=== PATIENT | female | born 1985 | race Caucasian/White ===

== ENCOUNTER → 2020-05-25 16:49 | Outpatient (CLI) | payer SELFPAY ==
[2020-05-26 16:43] LABS: Rubella Antibody IgG > 350.0 IU/mL (>15)
== END ==
PROVIDERS: PCP Obstetrics & Gynecology; Referring Provider Obstetrics & Gynecology; Visit Provider Obstetrics & Gynecology
DX: Z31.69 Encounter for other general counseling and advice on procreation (principal)
CPT/HCPCS: 36415; 86762; 86765

== ENCOUNTER → 2020-07-18 12:09 | Outpatient (CLI) | payer SELFPAY ==
--- NOTE | 2020-07-18 | DI.US.S_ITS ---
PROCEDURE: US OB <= 14 WEEKS FETUS INDICATIONS: SIZE AND DATES OUTSIDE/PRIOR DATING DATA: Last menstrual period (LMP): 05/04/2020. LMP-based estimated date of delivery (LUCIANA): 02/08/2021. First dating scan (date and location): 07/18/2020. Estimated date of delivery (LUCIANA) from first dating scan: 02/04/2021. TECHNIQUE: Real-time scanning was performed of the fetus and maternal pelvic organs, with image documentation. Endovaginal scanning was also performed to better visualize the fetus and maternal ovaries. COMPARISON: None. FINDINGS: Embryo: Dorothy-rump length measuring 4.5 cm, corresponding to gestational age 11 weeks 2 days. heart rate 168 BPM. Normal yolk sac. No omar gestational hemorrhage. Measurement variability in dating: +/- 4 weeks by LMP, +/- 7 days by mean sac diameter (use before 6 weeks gestation if crown-rump length not able to be measured), +/- 5 days by crown-rump length (up to 8 weeks 6 days gestation), +/- 7 days by crown-rump length (up to 13 weeks 6 days gestation). Maternal organs: Ovaries are within normal limits. Right corpus luteum. IMPRESSION: 1. Arana living intrauterine at 11 weeks 2 days based on today's crown rump length. heart rate 168 BPM. 2. No perigestational hemorrhage. Dictated by: Mahendra Oliveros M.D. on 07/18/2020 at 14:26 Approved by: Mahendra Oliveros M.D. on 07/18/2020 at 14:30
== END ==
PROVIDERS: PCP Registered Nurse Women's Health Care, Ambulatory; Referring Provider Registered Nurse Women's Health Care, Ambulatory; Visit Provider Registered Nurse Women's Health Care, Ambulatory
DX: Z36.87 Encounter for antenatal screening for uncertain dates (principal); Z3A.11 11 weeks gestation of pregnancy
CPT/HCPCS: 76801

== ENCOUNTER → 2022-05-09 09:29 | Outpatient (CLI) | payer OTHER, MEDICAID, SELFPAY ==
[2022-05-09 20:15] LABS: Vitamin D 25 Hydroxy (D3) 52.1 ng/mL (30.0-100.0)
== END ==
PROVIDERS: PCP Family Medicine; Visit Provider Family Medicine
DX: Z13.21 Encounter for screening for nutritional disorder (principal)
CPT/HCPCS: 82306

== ENCOUNTER → 2023-11-29 09:15 | Outpatient (CLI) | payer OTHER, MEDICAID, SELFPAY ==
[2023-11-29 19:17] LABS: Progesterone, Total 8.74 ng/mL
[2023-11-29 20:11] LABS: Vitamin D 25 Hydroxy (D3) 43.5 ng/mL (30.0-100.0)
== END ==
PROVIDERS: PCP Family Medicine
DX: N96 Recurrent pregnancy loss (principal); R79.89 Other specified abnormal findings of blood chemistry
CPT/HCPCS: 82306; 84144

== ENCOUNTER → 2024-06-16 15:34 | Outpatient (CLI) | payer OTHER, MEDICAID, SELFPAY ==
[2024-06-16 21:41] LABS: Urine N gonorrhoeae NOT DETECTED
[2024-06-16 21:46] LABS: Urine Chlamydia NOT DETECTED
== END ==
PROVIDERS: PCP Family Medicine; Visit Provider Obstetrics & Gynecology
DX: Z34.81 Encounter for supervision of other normal pregnancy, first trimester (principal); Z3A.10 10 weeks gestation of pregnancy
CPT/HCPCS: 87491; 87591

== ENCOUNTER → 2024-06-16 16:04 | Outpatient (CLI) | payer OTHER, MEDICAID, SELFPAY ==
[2024-06-16 17:05] LABS: Add Manual Diff / Slide Review NO; Basophils Absolute Auto 0 /uL (0-100); Basophils Percent Auto 0.3 % (0-2); Eosinophils Absolute Auto 200 /uL (0-450); Eosinophils Percent Auto 2.1 % (2-4); Hematocrit 35.8 % (36-46); Hemoglobin 12.2 g/dL (12.0-16.0); Lymphocytes Absolute Auto 2600 /uL (1100-4500); Lymphocytes Percent Auto 25.3 % (25-40); Mean Corpuscular Hemoglobin 32.1 PG (26-34); Mean Corpuscular Volume 94.4 fL (80-100); Monocytes Absolute Auto 900 /uL (0-900); Neutrophils Absolute Auto 6400 /uL (1500-7000); Neutrophils Percent Auto 63.3 % (50-75); Platelet Count 409 X10^3/uL (150-400); Red Blood Cell Count 3.79 X10^6/uL (4.0-5.2); White Blood Cell Count 10.1 X10^3/uL (4.5-11.0)
[2024-06-16 17:17] LABS: Hemoglobin A1C% w Est Avg Glu 5.2 % (4.0-6.0)
[2024-06-16 18:10] LABS: Thyroid Stimulating Hormone 0.393 uIU/mL (0.47-4.68)
== END ==
PROVIDERS: PCP Family Medicine; Referring Provider Obstetrics & Gynecology; Visit Provider Obstetrics & Gynecology
DX: Z34.81 Encounter for supervision of other normal pregnancy, first trimester (principal); Z3A.10 10 weeks gestation of pregnancy
CPT/HCPCS: 80055; 83036; 84439; 84443; 86787; 86803; 86850; 86900; 86901; 87389; 87491; 87591

== ENCOUNTER → 2024-09-03 11:26 | Outpatient (CLI) | payer OTHER, SELFPAY ==
--- NOTE | 2024-09-03 11:27 | DI.US.S_ITS ---
PROCEDURE: US OB >= 14 WEEKS FETUS INDICATIONS: ANATOMY OUTSIDE/PRIOR DATING DATA: Last menstrual period (LMP): 04/06/2024 LMP-based estimated date of delivery (LUCIANA): 01/21/2025 First dating scan (date and location): na Estimated date of delivery (LUCIANA) from first dating scan: na TECHNIQUE: Real-time scanning was performed of the fetus, with image documentation and biometric measurements. COMPARISON: None. FINDINGS: General: A single living intrauterine gestation is present. Presentation: Transverse and head to the right Placenta: Posterior no evidence of previa. Amniotic fluid index: 20.5 cm largest pocket is 6.2 cm heart rate: 157 Maternal cervical canal: 5.27 cm normal in appearance biometrics: Biparietal diameter: 5.2 cm, 21 weeks 6 days Head circumference: 19.7 cm, 21 weeks and 6 days Abdominal circumference: 17.3 cm, 22 weeks and 2 days Femur length: 3.6 cm, 21 weeks and 2 days Clinically estimated gestational age: 21 weeks and 3 days Composite gestational age from present scan: 21 weeks and 6 days Estimated weight and percentile: 454 grams 66 percentile Anatomic survey: Neuro: Ventricles are non-dilated at less than 10 mm. Cisterna magna is normal at 3-11 mm. Cerebellum is normal in size and morphology. Nuchal skin fold: Normal at less than 6 mm between 14-21 weeks gestational age. Face: Nose and lips, facial profile are normal. Spine: No evidence for spina bifida. Heart: 4-chambered heart is present, with normal ventricular outflow tracts. Diaphragm: Diaphragm is intact. Stomach: Left-sided stomach is present. Kidneys: No hydronephrosis. Normal is less than 5 mm in 2nd trimester, less than 7 mm in 3rd trimester. Cord: 3-vessel cord has orthotopic insertion. Bladder: Normal in size. Extremities: All 4 extremities identified. IMPRESSION: 1. Single live intrauterine consistent with 21 weeks and 6 days. 2. Normal anatomic survey. We strive to produce accurate, complete, and clear reports of imaging services. To assist us in improving patient care, this report was composed using standard report templates and voice recognition software. Therefore, it may contain abnormal punctuation, insertions and/or omissions. Occasional wrong-word or sound-alike substitutions may occur. Though we review the report and make efforts to correct it, we do recommend that the report be read carefully in proper context to recognize any text inaccuracies. Approved by: Arun Gibbons M.D. on 09/18/2024 at 12:45
== END ==
PROVIDERS: PCP Family Medicine; Referring Provider Obstetrics & Gynecology; Visit Provider Obstetrics & Gynecology
DX: Z34.82 Encounter for supervision of other normal pregnancy, second trimester (principal); Z3A.21 21 weeks gestation of pregnancy
CPT/HCPCS: 76811

== ENCOUNTER → 2024-10-20 14:53 | Outpatient (CLI) | payer OTHER, SELFPAY ==
[2024-10-20 16:23] LABS: Hematocrit 29.8 % (36-46); Hemoglobin 10.1 g/dL (12.0-16.0)
[2024-10-20 16:45] LABS: GTT (PREG) 1 Hour PP 50gm Dose 171 mg/dL (76-139)
== END ==
PROVIDERS: PCP Family Medicine; Referring Provider Obstetrics & Gynecology; Visit Provider Obstetrics & Gynecology
DX: Z34.82 Encounter for supervision of other normal pregnancy, second trimester (principal); Z3A.26 26 weeks gestation of pregnancy
CPT/HCPCS: 36415; 82950; 85014; 85018

== ENCOUNTER → 2024-11-16 09:43 | Outpatient (CLI) | payer OTHER, SELFPAY ==
[2024-11-16 11:22] LABS: Glucose Fasting Gestational 86 mg/dL (76-95)
[2024-11-16 12:17] LABS: Glucose 1 Hour Gest 140 mg/dL (76-180)
[2024-11-16 13:14] LABS: Glucose 2 Hour Gest 166 mg/dL (76-155)
[2024-11-16 13:25] LABS: Glucose Tol Interp,Gestational INTERPRETATION
[2024-11-16 13:53] LABS: Glucose 3 Hour Gest 156 mg/dL (76-140)
== END ==
LOC: LAB 09:45
PROVIDERS: PCP Family Medicine; Referring Provider Obstetrics & Gynecology; Visit Provider Obstetrics & Gynecology
DX: Z34.80 Encounter for supervision of other normal pregnancy, unspecified trimester (principal); R73.09 Other abnormal glucose
CPT/HCPCS: 36415; 82951; 82952

== ENCOUNTER → 2024-12-15 11:00 | Oncology outpatient (ONC) | payer OTHER, SELFPAY ==
[2024-12-03 10:44] VITALS: BP 117/62; PULSE 90; RESP 18; TEMP 37.1; O2SAT 99
[2024-12-03] MEDS: IRON SUCROSE 200 MG in SODIUM CHLORIDE 0.9% 100 ML 150 MG IV (11:07)
[2024-12-03 12:02] VITALS: BP 119/74; PULSE 90; RESP 18; TEMP 36.6; O2SAT 98
[2024-12-08 13:50] VITALS: BP 106/72; PULSE 102; RESP 18; TEMP 36.9; O2SAT 97
[2024-12-08] MEDS: IRON SUCROSE 200 MG in SODIUM CHLORIDE 0.9% 100 ML 220 MG IV (13:57)
[2024-12-08 14:54] VITALS: BP 114/74; PULSE 105; RESP 18; TEMP 37.1; O2SAT 97
[2024-12-15 10:48] VITALS: BP 107/69; PULSE 91; RESP 18; TEMP 36.6; O2SAT 100
[2024-12-15] MEDS: IRON SUCROSE 200 MG in SODIUM CHLORIDE 0.9% 100 ML 220 MG IV (11:15)
[2024-12-15 12:23] VITALS: BP 106/64; PULSE 99; RESP 18; TEMP 37.2; O2SAT 96
== END ==
PROVIDERS: PCP Family Medicine; Referring Provider Obstetrics & Gynecology; Visit Provider Obstetrics & Gynecology
DX: O99.013 Anemia complicating pregnancy, third trimester (principal); Z3A.36 36 weeks gestation of pregnancy
CPT/HCPCS: 87653; 96365; J1756

== ENCOUNTER → 2024-12-15 13:39 | Outpatient (CLI) | payer OTHER, SELFPAY ==
[2024-12-16 17:09] LABS: Strep Grp B PCR NEG for Grp B Strep
== END ==
PROVIDERS: PCP Family Medicine; Visit Provider Obstetrics & Gynecology
DX: Z34.93 Encounter for supervision of normal pregnancy, unspecified, third trimester (principal); Z3A.36 36 weeks gestation of pregnancy
CPT/HCPCS: 87653

== ENCOUNTER 2024-12-22 11:38 | Outpatient (CLI) | payer OTHER, SELFPAY ==
[2024-12-22 13:37] LABS: Add Manual Diff / Slide Review NO; Basophils Absolute Auto 0 /uL (0-100); Basophils Percent Auto 0.4 % (0-2); Eosinophils Absolute Auto 200 /uL (0-450); Eosinophils Percent Auto 2.2 % (2-4); Hematocrit 34.9 % (36-46); Hemoglobin 11.9 g/dL (12.0-16.0); Lymphocytes Absolute Auto 1900 /uL (1100-4500); Lymphocytes Percent Auto 22.1 % (25-40); Mean Corpuscular Hemoglobin 32.7 PG (26-34); Mean Corpuscular Volume 96.2 fL (80-100); Monocytes Absolute Auto 800 /uL (0-900); Monocytes Percent Auto 9.4 % (3-14); Neutrophils Absolute Auto 5600 /uL (1500-7000); Neutrophils Percent Auto 65.9 % (50-75); Platelet Count 282 X10^3/uL (150-400); Red Blood Cell Count 3.63 X10^6/uL (4.0-5.2); Red Cell Distribution Width 15.9 % (11.6-14.8); White Blood Cell Count 8.5 X10^3/uL (4.5-11.0)
[2024-12-22 13:45] LABS: Hemoglobin A1C% w Est Avg Glu 5.1 % (4.0-6.0)
[2024-12-22 13:49] LABS: Alanine Aminotransferase 29 IU/L (<35); Albumin Globulin Ratio 1.2 (1.0-2.8); Alkaline Phosphatase 145 U/L (38-126); Aspartate Aminotransferase 38 IU/L (14-36); BUN Creatinine Ratio 17.5 (6-22); Bilirubin Total 0.5 mg/dL (0.2-1.3); Blood Urea Nitrogen 10 mg/dL (7-17); Carbon Dioxide 20 mmol/L (22-32); Chloride 106 mmol/L (98-107); Estimated Glomerular Filt Rate > 60 mL/min (>60); Globulin 3.3 g/dL (1.7-4.1); Glucose 87 mg/dL (70-100); HEMOLYSIS < 15 (0-50); Potassium 4.3 mmol/L (3.4-5.1); Sodium 134 mmol/L (137-145); Total Protein 7.3 g/dL (6.3-8.2); Uric Acid 5.2 mg/dL (2.5-6.2)
[2024-12-22 14:04] LABS: Creatinine Urine Random 94.69 mg/dL; Protein (Total) Urine Random 20 mg/dL (0-12); Protein Creatinine Ratio Urine 0.21 GRAM/24H
== END 2024-12-22 13:45 | disposition home or self-care (01) ==
LOC: LABOR 12:23 → OB 14:13
PROVIDERS: PCP Family Medicine; Referring Provider Obstetrics & Gynecology; Visit Provider Obstetrics & Gynecology
DX: O09.523 Supervision of elderly multigravida, third trimester (principal); Z3A.37 37 weeks gestation of pregnancy
CPT/HCPCS: 36415; 59025; 80053; 83036; 84550; 85025; G0378; G0379

== ENCOUNTER 2024-12-29 10:46 | Outpatient (CLI) | payer OTHER, SELFPAY | END 2024-12-29 11:33 | disposition home or self-care (01) | LOC: LABOR 11:21 → OB 12:42 | PROVIDERS: PCP Family Medicine; Referring Provider Obstetrics & Gynecology; Visit Provider Obstetrics & Gynecology | DX: O09.523 Supervision of elderly multigravida, third trimester (principal); O24.419 Gestational diabetes mellitus in pregnancy, unspecified control; O13.3 Gestational [pregnancy-induced] hypertension without significant proteinuria, third trimester; Z3A.38 38 weeks gestation of pregnancy | CPT/HCPCS: 59025; G0378; G0379 ==

== ENCOUNTER 2024-12-29 19:22 | Inpatient (IN) | payer OTHER, SELFPAY ==
[2024-12-29 20:02] VITALS: BP 134/76
[2024-12-29 20:26] LABS: Add Manual Diff / Slide Review NO; Basophils Absolute Auto 0 /uL (0-100); Basophils Percent Auto 0.4 % (0-2); Eosinophils Absolute Auto 200 /uL (0-450); Eosinophils Percent Auto 1.4 % (2-4); Hematocrit 34.3 % (36-46); Hemoglobin 12.1 g/dL (12.0-16.0); Lymphocytes Absolute Auto 2100 /uL (1100-4500); Mean Corpuscular HGB Conc 35.3 % (30-36); Mean Corpuscular Hemoglobin 33.7 PG (26-34); Mean Corpuscular Volume 95.4 fL (80-100); Monocytes Absolute Auto 1000 /uL (0-900); Monocytes Percent Auto 8.9 % (3-14); Neutrophils Absolute Auto 7600 /uL (1500-7000); Neutrophils Percent Auto 70.3 % (50-75); Platelet Count 262 X10^3/uL (150-400); Red Blood Cell Count 3.59 X10^6/uL (4.0-5.2); Red Cell Distribution Width 15.5 % (11.6-14.8); White Blood Cell Count 10.9 X10^3/uL (4.5-11.0)
[2024-12-29 20:37] LABS: Alanine Aminotransferase 26 IU/L (<35); Albumin 3.8 g/dL (3.5-5.0); Albumin Globulin Ratio 1.1 (1.0-2.8); Alkaline Phosphatase 177 U/L (38-126); Aspartate Aminotransferase 42 IU/L (14-36); BUN Creatinine Ratio 26.4 (6-22); Bilirubin Total 0.5 mg/dL (0.2-1.3); Blood Urea Nitrogen 14 mg/dL (7-17); Calcium 8.9 mg/dL (8.4-10.2); Carbon Dioxide 17 mmol/L (22-32); Chloride 107 mmol/L (98-107); Estimated Glomerular Filt Rate > 60 mL/min (>60); Globulin 3.4 g/dL (1.7-4.1); Glucose 85 mg/dL (70-99); HEMOLYSIS 17 (0-50); Potassium 3.8 mmol/L (3.4-5.1); Sodium 134 mmol/L (137-145); Total Protein 7.2 g/dL (6.3-8.2); Uric Acid 5.4 mg/dL (2.5-6.2)
[2024-12-29] MEDS: DINOPROSTONE VAG (CERVIDIL) 10 MG VAG (21:19)
[2024-12-29 21:56] LABS: Creatinine Urine Random 34.44 mg/dL; Protein (Total) Urine Random 16 mg/dL (0-12); Protein Creatinine Ratio Urine 0.46 GRAM/24H
[2024-12-30 08:22] LABS: Add Manual Diff / Slide Review NO; Basophils Absolute Auto 100 /uL (0-100); Basophils Percent Auto 0.7 % (0-2); Eosinophils Absolute Auto 100 /uL (0-450); Eosinophils Percent Auto 1.1 % (2-4); Hematocrit 33.3 % (36-46); Hemoglobin 11.4 g/dL (12.0-16.0); Lymphocytes Absolute Auto 1600 /uL (1100-4500); Lymphocytes Percent Auto 15.8 % (25-40); Mean Corpuscular HGB Conc 34.2 % (30-36); Mean Corpuscular Hemoglobin 32.9 PG (26-34); Mean Corpuscular Volume 96.4 fL (80-100); Monocytes Absolute Auto 800 /uL (0-900); Monocytes Percent Auto 7.5 % (3-14); Neutrophils Absolute Auto 7700 /uL (1500-7000); Neutrophils Percent Auto 74.9 % (50-75); Platelet Count 258 X10^3/uL (150-400); Red Blood Cell Count 3.45 X10^6/uL (4.0-5.2); Red Cell Distribution Width 15.9 % (11.6-14.8); White Blood Cell Count 10.2 X10^3/uL (4.5-11.0)
[2024-12-30 08:25] LABS: Alanine Aminotransferase 27 IU/L (<35); Albumin 3.8 g/dL (3.5-5.0); Albumin Globulin Ratio 1.2 (1.0-2.8); Alkaline Phosphatase 155 U/L (38-126); Aspartate Aminotransferase 45 IU/L (14-36); BUN Creatinine Ratio 20.8 (6-22); Bilirubin Total 0.6 mg/dL (0.2-1.3); Blood Urea Nitrogen 11 mg/dL (7-17); Calcium 9.4 mg/dL (8.4-10.2); Carbon Dioxide 17 mmol/L (22-32); Chloride 106 mmol/L (98-107); Estimated Glomerular Filt Rate > 60 mL/min (>60); Globulin 3.3 g/dL (1.7-4.1); Glucose 107 mg/dL (70-99); HEMOLYSIS 43 (0-50); Potassium 3.8 mmol/L (3.4-5.1); Sodium 133 mmol/L (137-145); Total Protein 7.1 g/dL (6.3-8.2)
[2024-12-30 08:27] LABS: Uric Acid 6.1 mg/dL (2.5-6.2)
--- NOTE | 2024-12-30 09:14 | PM.OBHP.IH.1 ---
OB HPI Date/Time Date of admission: 12/29/24 Date Patient Seen: 12/30/24 Time Patient Seen: 07:15 History of Present Condition Chief complaint: Induction LUCIANA Calculator Estimated Delivery Date Method Current WG Current Estimate 01/11/25 LMP (Certain) 38w 2d Other Estimates 01/07/25 Ultrasound #1 38w 6d Estimated Gestational Age (weeks): 38w2d : 4 Para: 1 Narrative: 39yo at 38w2d D=10wk US admitted overnight for cervical ripening, planned IOL at term in setting of gestational HTN, AMA, A1GDM. Patient was admitted to facility evening of 12/29 following office encounter earlier in the day. Cervidil placed per RN at 2115, CEFM overnight with regular contractions pt states are mild to moderate, q5-7min. Pt reports this AM significant FM in the last half hour with perceived change in presentation. care: good care Dating criteria OB: LMP confirmed by 1st trimester US Ultrasounds: normal mid trimester US Obstetrical complications: gestational diabetes (A1GDM, late diagnosis ) and gestational hypertension (non-sustained mild range BP, Pr/Cr 0.46, AST 42) External History Prior Pregnancies: G1 - , c/b retained placenta with PPH G2/3 - SAB G4 - current Indications Indication for induction OB: gestational HTN/pre-eclampsia Preadmission Labs Last OB Lab Results: Blood Type A Positive 12/29/24 20:05 Antibody Screen Negative 12/29/24 20:05 Hct 33.3 % (36-46) L 12/30/24 07:55 Hgb 11.4 g/dL (12.0-16.0) L 12/30/24 07:55 Hep Bs Antigen Negative s/c (NEGATIVE) 06/16/24 16:34 Hepatitis C Antibody Negative s/c (NEGATIVE) 06/16/24 16:34 Rubella Antibody > 350.0 IU/mL (>15) 06/16/24 16:34 VZV IgG Antibody Reactive (Non Reactive) 06/16/24 16:34 Glucose 1 Hr 50 gm 171 mg/dL (76-139) H 10/20/24 16:04 Hemoglobin A1c 5.1 % (4.0-6.0) 12/22/24 13:20 Group B Strep (PCR) Neg for grp b strep 12/15/24 13:39 Glucose Tolerance Testing: Fasting (86), 1 hr (140), 2 hr (166) and 3 hr (156) -: Chlamydia screen: negative, Gonorrhea screen: negative and Urine: negative Genetic Screens: Cell-free DNA: Normal and Alpha-fetoprotein: Normal External Labs -: Urine: negative Prior (ies) Past Pregnancies Del. Date GA/Weeks Labor Lgth Wt Sex Route Outcome Anesthesia Place Delv Breastfeed Preg Comp Name 02/05/21 40 50 8 lb 4 oz Female vaginal live - full term none PH [place] 3+ years other hemorrhage Leah 12/08/21 ~8 spontaneous 09/10/23 ~8 spontaneous Delivery Date: 02/05/21 Last Updated by: Nia Cortez RN retained placenta Delivery Date: 12/08/21 Last Updated by: Nia Cortez RN Missed AB, likely stopped developing ~4 wk; passed spontaneously w/o complications Delivery Date: 09/10/23 Last Updated by: Nia Cortez RN missed AB ~5 weeks, hemorrhaged w/ spontaneous passage ~8 weeks Evaluation Evaluation Baseline heart rate: 145 Variability: Moderate (11-25) monitor accelerations: Absent Monitor Decelerations: Absent Contraction Frequency (minutes): 7 Uterine Contraction Intensity: Moderate Category of Tracing: Reactive Status: Category l Dilation (cm): 1 Effacement (%): 0 Dilation: 1-2 cm Effacement: 0-30% station: -4 (unable to palpate vertex ) Consistency: soft Comments: unable to palpate vertex on SVE bedside transabdominal US performed --> malpresentation, transverse lie (head to maternal L, back down/LE in maternal RLQ) [facility] Medical History (Updated 12/22/24 @ 12:13 by Pilar Tesfaye MD) Gestational diabetes mellitus (GDM) hemorrhage Retained placenta Chicken pox (~1989) Surgical History (Updated 06/01/24 @ 14:46 by Nia Cortez RN) H/O oral surgery [place] teeth extracted Family History (Updated 06/01/24 @ 14:48 by Nia Cortez RN) Father Lung cancer Smoker Mother Diabetes mellitus Hypertension Social History marital status: unmarried,living together number of children: 1 household members: significant other and children lives independently: Yes caregiver/support person: Yes housing: house pets and animals: Yes (dog and cat) education level: high school (GED) 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[employer], 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) current occupational exposures/hazards: Yes (aware of precautions) special holger needs: No travel history: over 6 months ago seatbelt use: always water heater temp set < 120 deg: Yes working smoke detector in home: Yes fire extinguisher in home: Yes carbon monox detector in home: Yes firearms in home: No do you feel safe at home: Yes Smoking Status: Former smoker second hand exposure: No alcohol intake: never substance use type: does not use during the past year weight has: remained stable well-balanced diet: daily or most days daily servings fruits/ve-4 caffeine: Yes (occasional cup coffee) Type(s) of exercise: walking and other (active w/ young child) Meds Home Medications and Allergies Home Medications Medication Instructions Recorded Confirmed Type ferrous sulfate 134 mg (27 mg 134 mg PO DAILY 06/01/24 12/02/24 History iron) tablet omega-3 fatty acids 1,000 mg 1,000 mg PO DAILY 06/01/24 12/02/24 History capsule vit 14-ferrous fum 29 mg 1 tab PO DAILY 06/01/24 12/02/24 History iron-folic acid 1 mg chewable tablet ferrous sulfate 325 mg (65 mg 325 mg PO BID #60 tabs 10/21/24 12/02/24 Rx iron) tablet,delayed release Allergies Allergy/AdvReac Type Severity Reaction Status Date / Time No Known Drug Allergies Allergy Verified 12/02/24 09:16 Review of Systems Review of Systems ROS: Yes All systems reviewed with the patient and are negative except as otherwise documented OB Exam Vital signs Blood Pressure: 137/72 Pulse Rate: 93 Respiratory Rate: 18 Temperature: 97.3 F HENMT Head: normal to inspection Resp Effort & Inspection: normal respiratory effort and able to speak in complete sentences Cardio Rate: regular rate Extremities Lower extremity: Yes normal to inspection GI Inspection: normal to inspection Palpation: Yes soft Other: gravid, eduardo transverse 7.5-8# Other: 1/thk/hi, unable to palpate vertex Objective Labs 12/30/24 07:55 12/30/24 07:55 Labs: Laboratory Results - last 24 hr 12/29/24 12/29/24 12/30/24 20:05 21:15 07:55 WBC 10.9 10.2 RBC 3.59 L 3.45 L Hgb 12.1 11.4 L Hct 34.3 L 33.3 L MCV 95.4 96.4 MCH 33.7 32.9 MCHC 35.3 34.2 RDW 15.5 H 15.9 H Plt Count 262 258 Neut % (Auto) 70.3 74.9 Lymph % (Auto) 19.0 L 15.8 L [place] % (Auto) 8.9 7.5 Eos % (Auto) 1.4 L 1.1 L Baso % (Auto) 0.4 0.7 Neut # (Auto) 7600 H 7700 H Lymph # (Auto) 2100 1600 [place] # (Auto) 1000 H 800 Eos # (Auto) 200 100 Baso # (Auto) 0 100 Sodium 134 L 133 L Potassium 3.8 3.8 Chloride 107 106 Carbon Dioxide 17 L 17 L BUN 14 11 Creatinine 0.53 0.53 Estimated GFR > 60 > 60 BUN/Creatinine Ratio 26.4 H 20.8 Glucose 85 107 H Uric Acid 5.4 6.1 Calcium 8.9 9.4 Total Bilirubin 0.5 0.6 AST 42 H 45 H ALT 26 27 Alkaline Phosphatase 177 H 155 H Total Protein 7.2 7.1 Albumin 3.8 3.8 Globulin 3.4 3.3 Albumin/Globulin Ratio 1.1 1.2 U Random Total Protein 16 H Urine Creatinine 34.44 Protein/Creatinin Ratio 0.46 Blood Type A Positive Antibody Screen Negative Assessment and Plan Assessment and Plan Assessment and Plan narrative: 39yo at 38w2d d=10wk US, admitted for overnight for IOL in setting of term gestational HTN, AMA, A1GDM now with change in presentation to transverse back-down lie IOL cervidil removed this AM, malpresentation identified at time of exam patient counseled on either attempt at ECV followed by continued IOL versus proceeding directly to primary for delivery. Risks, benefits and alternatives were discussed and in shared decision making model patient strongly desires to proceed with primary section OR notified NPO except for meds Gestational HTN, now with lab evidence of preE without severe features non-sustained intermittent mild range BP, asymptomatic mild isolated elevation in AST (45), ALT/Cr/Plt wnl, uric acid 6.1 cont serial BP monitoring, no indication for magensium gtt at this time proceed to delivery A1GDM POCT BG wnl dispo: to OR, anticipate routine postoperative/ care Time-Based Coding :: [TOTAL MINUTES] spent with patient and on the chart (including review of chart, obtaining history, exam, reviewing outside data, placing orders, documenting exam and treatment plan, and counseling patient) on [DATE].
[2024-12-30] MEDS: CITRIC ACID/SODIUM CITRATE 15 ML SOLUTION 30 ML PO (09:44)
--- NOTE | 2024-12-30 09:55 | PM.PREOP ---
Pre-operative Note Interval Note History & Physical reviewed/Exam performed by Physician: Yes Changes to H&P: No ASA Class (for procedural sedation): III
[2024-12-30] MEDS: CEFAZOLIN 2 GM/100 ML PREMIX 100 ML IV (10:13)
[2024-12-30] MEDS: ACETAMINOPHEN IV 1,000 MG/100 ML VIAL 400 MG IV (10:25)
--- NOTE | 2024-12-30 10:38 | SUR.OPER ---
Supine on padded OR bed, head on pillow, arms secured on padded arm boards at <90 degrees abduction, bump to right hip, legs uncrossed, safety belt at thigh.
[2024-12-30] MEDS: TRANEXAMIC ACID 1,000 MG in SODIUM CHLORIDE 0.9% 100 ML 600 MG IV (10:43)
[2024-12-30] MEDS: OXYTOCIN 10 UNIT/ML VIAL IM (10:58)
--- NOTE | 2024-12-30 11:38 | P.OP_ITS ---
Operative Date/Time/Diagnoses Date of procedure: 12/30/24 Time of procedure: 10:30 Pre-op diagnosis: 1) IUP at 38w2d; 2) malpresentation; 3) pre-eclampsia without severe features; 4) AMA Post-op diagnosis: other (s/p primary CS) Procedure & Clinicians Procedure: primary Same procedure as scheduled: Yes Indications: malpresentation Surgeon: Pilar Tesfaye Electronics Processing Supervisor: David Molina Reason for Electronics Processing Supervisor: acuity, high risk hemorrhage Anesthesia Type: Spinal Operative Notes Findings: Liveborn female in unstable cephalic presentation grossly normal uterus, bilateral adnexae Closure Type: primary Specimen(s): cord blood Intraoperative meds administered: Acetaminophen, Duramorph, Ketorolac, Pitocin (10u IU pit ) and Tranexamic acid (at time of placental delivery ) Estimated Blood Loss (mL): 500 Blood products transfused: none Procedure in detail: Pt was taken to the operating room and transferred to OR table.? The spinal was placed per anesthesia.? The patient was placed in the supine position, prepped and draped in a sterile fashion.? A mitchell catheter was inserted. Prior to incision the level of anesthesia was rechecked and found to be adequate.? A timeout was once again performed. A pfannensteil incision was made 2cm superior to the pubic symphysis.? This incision was carried down sharply to the level of the rectus fascia.? The fascia was incised sharply with knife and the incision was extended bilaterally and superiorly using monte scissors. The superior border of the fascia was elevated with two Tio clamps and bluntly dissected off of the rectus muscles followed by incision of the median raphe with the monte scissors.? Attention was then turned to the inferior border of the fascia which was dissected away from the underlying musculature in a similar manner down to the level of the pubic symphysis.? The rectus muscles were then in the midline and the peritoneum was identified.? The peritoneum was entered bluntly under direct visualization.? The peritoneal opening was then extended manually.? The coloring machine operator?s hand was inserted in the abdomen and the uterus was found to be in a levo-rotated position. The bladder blade was then inserted. The vesicouterine peritoneum was identified, elevated using DeBakey forceps and incised in the midline using Metzenbaum scissors.? The incision was carried laterally and superiorly bilaterally.? A bladder flap was further developed digitally and the bladder blade was replaced.? Next, a low transverse incision was made in the uterus using the knife.? The incision was extended laterally and superiorly bilaterally bluntly.? The coloring machine operator?s hand was then inserted into the uterus to find an in the vertex OT position.? The bladder blade was removed and ?s vertex was grasped, flexed and brought to the incision where the was delivered atraumatically using fundal pressure.? The cord was doubly clamped and cut after 60s of delayed cord clamping.? The was then passed to waiting pediatricians.? The placenta was noted to be densely adherent and necessitated manual extraction however no evidence of accreta; the placenta was then passed off the field. ? The uterus was exteriorized and the uterine cavity was wiped of all clots and debris.? The bladder blade was reinserted and the hysterotomy incision was repaired with #0 vicryl in a running locked fashion, followed by a second #0 vicryl in an imbricating fashion.? Tubes, ovaries and adnexae were visualized and noted to be grossly normal in appearance.? The uterus was replaced into the abdomen without difficulty and the hysterotomy was noted to be hemostatic off of tension.? Perclot was placed along the denuded lower uterine segment for further hemostasis prophylaxis. The rectus fascia was closed using #1 vicryl in a running fashion.? The incision was irrigated and hemostasis was achieved using the bovie.? The subcutaneous space was reapproximated using plain gut suture in a running fashion.? The skin was closed using 4-0 monocryl followed by application of steristrips and abdominal compression dressing.? All counts were correct x2.? The pt tolerated the procedure well and without difficulty. Fundal contents were expressed and fundus noted to be firm, level noted prior to patient transfer to PACU in stable condition.? Complications: none Baby 1: Delivery Date: 12/30/24 Delivery Time: 10:40 Infant Gender: Female Presentation: vertex (unstable lie/non-engaged ) Position: Left Occiput Transverse Placental Delivery Description: Manual Removal Cord Vessel Description: 3 Vessels score (1 min): 8 score (5 min): 9 weight: 8 lb 6 oz Post-operative Condition: stable Disposition: PACU Aftercare: routine postop
[2024-12-30 11:39] VITALS: BP 107/70; PULSE 103; RESP 10; O2SAT 98
[2024-12-30 13:25] VITALS: BP 137/72; PULSE 93; RESP 18; TEMP 36.3
[2024-12-30] MEDS: KETOROLAC 30 MG/ML VIAL IV ×2 (17:20→23:49)
[2024-12-30] MEDS: ACETAMINOPHEN 325 MG TABLET 650 MG PO (21:21)
[2024-12-31] MEDS: ACETAMINOPHEN 325 MG TABLET 650 MG PO ×4 (03:49→23:52)
[2024-12-31] MEDS: KETOROLAC 30 MG/ML VIAL IV (07:44)
[2024-12-31 07:47] LABS: Add Manual Diff / Slide Review NO; Basophils Absolute Auto 0 /uL (0-100); Basophils Percent Auto 0.3 % (0-2); Eosinophils Absolute Auto 0 /uL (0-450); Eosinophils Percent Auto 0.3 % (2-4); Hematocrit 35.2 % (36-46); Hemoglobin 11.7 g/dL (12.0-16.0); Lymphocytes Absolute Auto 1000 /uL (1100-4500); Mean Corpuscular HGB Conc 33.2 % (30-36); Mean Corpuscular Hemoglobin 32.3 PG (26-34); Mean Corpuscular Volume 97.1 fL (80-100); Monocytes Absolute Auto 600 /uL (0-900); Neutrophils Absolute Auto 12900 /uL (1500-7000); Neutrophils Percent Auto 88.4 % (50-75); Platelet Count 203 X10^3/uL (150-400); Red Blood Cell Count 3.63 X10^6/uL (4.0-5.2); Red Cell Distribution Width 15.7 % (11.6-14.8); White Blood Cell Count 14.6 X10^3/uL (4.5-11.0)
[2024-12-31 08:06] LABS: Alanine Aminotransferase 21 IU/L (<35); Albumin 3.1 g/dL (3.5-5.0); Albumin Globulin Ratio 1.1 (1.0-2.8); Alkaline Phosphatase 109 U/L (38-126); Aspartate Aminotransferase 34 IU/L (14-36); BUN Creatinine Ratio 14.5 (6-22); Bilirubin Total 0.8 mg/dL (0.2-1.3); Blood Urea Nitrogen 9 mg/dL (7-17); Calcium 9.2 mg/dL (8.4-10.2); Carbon Dioxide 19 mmol/L (22-32); Chloride 106 mmol/L (98-107); Estimated Glomerular Filt Rate > 60 mL/min (>60); Globulin 2.9 g/dL (1.7-4.1); Glucose 96 mg/dL (70-99); HEMOLYSIS < 15 (0-50); Potassium 4.1 mmol/L (3.4-5.1); Sodium 132 mmol/L (137-145)
--- NOTE | 2024-12-31 09:33 | PM.OBPN.1 ---
Subjective - OB Subjective Patient comments: no complaints, pain well controlled, incisional pain, tolerating diet and flatus present feeding status: exclusively breast feeding Narrative: Doing very well overnight. No N&V and she's already been OOD a couple of times without undue discomfort. Baseline pulse remains elevated but the trend appears to be toward normalization. She has no other concerns and her baby seems to be doing well. Date Patient Seen: 12/31/24 Time Patient Seen: 09:33 Exam Vital Signs (past 8 hours): Oxygen Delivery Method Room Air Const General: cooperative and comfortable Nutritional Appearance: average body habitus Orientation: alert and oriented x3 HENMT Head: normal to inspection, atraumatic and abrasion Ears: hearing grossly normal bilaterally Face and sinus: face symmetric Eyes General: appearance normal, both eyes and all related structures Conjunctivae: conjunctivae normal Sclera: sclerae normal EOM: EOM intact bilaterally Neck Neck: normal visual inspection Resp Effort & Inspection: normal respiratory effort and able to speak in complete sentences Auscultation: clear to auscultation bilaterally Cardio Rate: regular rate Rhythm: regular rhythm Heart Sounds: S1 normal, S2 normal and no murmurs GI Inspection: normal to inspection and incision (Surgical dressing clean and dry) Palpation: soft, no hepatosplenomegaly and tender (Mild, diffuse postsurgical tenderness) External Female Exam: other (Light lochia) Uterus Location (Fundal Height): 18 Extrem General: no calf tenderness Psych Appearance: grossly normal Mental Status: mental status grossly normal Speech and Movement: speech and movement normal Mood: congruent mood Affect: normal affect Attitude: cooperative Thought Process: normal Thought Content: normal Judgment: judgment good Objective Labs 12/31/24 07:38 12/31/24 07:38 Labs: Laboratory Results - last 24 hr 12/31/24 07:38 WBC 14.6 H RBC 3.63 L Hgb 11.7 L Hct 35.2 L MCV 97.1 MCH 32.3 MCHC 33.2 RDW 15.7 H Plt Count 203 Neut % (Auto) 88.4 H Lymph % (Auto) 7.0 L Power % (Auto) 4.0 Eos % (Auto) 0.3 L Baso % (Auto) 0.3 Neut # (Auto) 18559 H Lymph # (Auto) 1000 L Power # (Auto) 600 Eos # (Auto) 0 Baso # (Auto) 0 Sodium 132 L Potassium 4.1 Chloride 106 Carbon Dioxide 19 L BUN 9 Creatinine 0.62 Estimated GFR > 60 BUN/Creatinine Ratio 14.5 Glucose 96 Calcium 9.2 Total Bilirubin 0.8 AST 34 ALT 21 Alkaline Phosphatase 109 Total Protein 6.0 L Albumin 3.1 L Globulin 2.9 Albumin/Globulin Ratio 1.1 Assessment & Plan Plan day: 1 plan OB: routine postop care Comments: Anticipate D/C 01/01/2025. Time-Based Coding :: 15 minutes spent with patient and on the chart (including review of chart, obtaining history, exam, reviewing outside data, placing orders, documenting exam and treatment plan, and counseling patient) on 12/31/2024.
[2024-12-31] MEDS: PRENATAL VIT,CALC/IRON/FOLIC 1 TABLET 1 TAB PO (10:56)
[2024-12-31 12:29] VITALS: BP 137/72; PULSE 93; RESP 18; TEMP 36.3
[2024-12-31 15:35] VITALS: TEMP 36.7
[2024-12-31] MEDS: IBUPROFEN 600 MG TABLET PO ×2 (15:35→23:53)
[2025-01-01] MEDS: IBUPROFEN 600 MG TABLET PO ×3 (06:08→17:48)
[2025-01-01] MEDS: ACETAMINOPHEN 325 MG TABLET 650 MG PO ×3 (06:08→17:49)
--- NOTE | 2025-01-01 08:00 | P.PNOB_ITS ---
Subjective - OB Subjective Patient comments: incisional pain (improving), tolerating diet and flatus present [place] baby status: doing well and nursing well feeding status: exclusively breast feeding Narrative: POD2 s/p primary CS for unstable lie. Patient states this AM that she is feeling better, notes moderate difficulty with ambulation secondary to incisional discomfort, adequate analgesia with current PO regimen. Denies BERTRAND, vision changes, RUQ pain. exclusively. Notes fatigue without LH/dizziness, ambulating and voiding independently. Date Patient Seen: 01/01/25 Time Patient Seen: 07:30 Exam Vital Signs (past 8 hours): Oxygen Delivery Method Room Air bP 125/76 HR 70 RR 16 Tc 97.4 Const General: cooperative, comfortable and well developed Nutritional Appearance: average body habitus Orientation: alert, awake and oriented x3 Limitations: mental status not altered HENMT Head: normal to inspection Resp Effort & Inspection: normal respiratory effort and able to speak in complete sentences Cardio Pulses: normal peripheral pulses GI Inspection: normal to inspection Palpation: soft Other: abd compression dressing in place, c/d/i mild appropriate tenderness to palpation, fundus firm << umb Other: deferred Skin General: no rashes or lesions noted Neuro General: patient alert, patient awake and patient oriented x3 Extrem General: normal to inspection Psych Mental Status: mental status grossly normal Judgment: judgment good Objective Labs 12/31/24 07:38 12/31/24 07:38 Labs: Laboratory Results - last 24 hr 12/31/24 07:38 Sodium 132 L Potassium 4.1 Chloride 106 Carbon Dioxide 19 L BUN 9 Creatinine 0.62 Estimated GFR > 60 BUN/Creatinine Ratio 14.5 Glucose 96 Calcium 9.2 Total Bilirubin 0.8 AST 34 ALT 21 Alkaline Phosphatase 109 Total Protein 6.0 L Albumin 3.1 L Globulin 2.9 Albumin/Globulin Ratio 1.1 Assessment & Plan Plan day: 2 plan OB: routine postop care Comments: 39yo POD2 s/p 1LTCS for unstable lie, maternal GHTN vs preE without severe features, h/o PPH necessitating transfusion, maternal anemia of , A1GDM, AMA Postop/ routine care abd binder requested this AM anticipate dc to home in AM secondary to transportation burden (would [place] able [place] this evening), personal h/o PPH Time-Based Coding :: [TOTAL MINUTES] spent with patient and on the chart (including review of chart, obtaining history, exam, reviewing outside data, placing orders, documenting exam and treatment plan, and counseling patient) on [DATE].
[2025-01-01] MEDS: PRENATAL VIT,CALC/IRON/FOLIC 1 TABLET 1 TAB PO (09:45)
[2025-01-02] MEDS: IBUPROFEN 600 MG TABLET PO ×2 (02:42→08:47)
[2025-01-02] MEDS: ACETAMINOPHEN 325 MG TABLET 650 MG PO ×2 (02:43→08:48)
[2025-01-02] MEDS: LANOLIN OINT 7 GM 1 APPLIC TOP (08:47)
[2025-01-02] MEDS: PRENATAL VIT,CALC/IRON/FOLIC 1 TABLET 1 TAB PO (08:47)
--- NOTE | 2025-01-02 12:19 | P.DS_ITS ---
Discharge Providers Provider Date of admission: 12/29/24 19:22 Discharge Date: 01/02/25 Primary care physician: Jose Antonio Sanders MD Consults: 12/29/24 20:01 Consult to Anesthesiology Urgent Comment: Consulting Provider: Anesthesiologist Reason for consultation: Epidural 12/30/24 13:58 Consult to Production Controller Routine Comment: Discharge provider: Pilar Tesfaye MD Summary Hospital Course Date Patient Seen: 01/02/25 Time Patient Seen: 12:20 Diagnoses: s/p 1LTCS for unstable lie Hospital Course: 39yo admitted for scheduled, medically indicated IOL at 38w2d in setting of preE without severe features, AMA, A1GDM. 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 Unstable lie diagnosed in AM of HD1 and in shared decision making model patient desired to proceed to delivery via primary . Patient underwent procedure without complication, densely adherent placenta noted at time of delivery without accreta. Patient had appropriate postoperative course, additional period of observation in setting of historical PPH. exclusively. Pt discharged to home on POD3 meeting all discharge milestones, short interval f/u in office 1wk for incision check. All labs and BP normalized following delivery Peripartum Data Infant Delivery Method: Section complications: none 1: Gender: Female Disposition of : home Status at Discharge Cognitive/behavioral status at discharge: oriented Functional status at discharge: independent ambulation Overall status at discharge: patient is back to baseline Time Spent with Patient Time attestation: Total time spent providing and/or coordinating discharge services: Time spent: Less than 30 minutes Objective Labs 12/31/24 07:38 12/31/24 07:38 Exam Vital Signs (past 8 hours): Oxygen Delivery Method Room Air maternal VSS/afebrile, reviewed in OBIX Const General: cooperative, comfortable and well developed Nutritional Appearance: average body habitus Orientation: alert, awake and oriented x3 Limitations: mental status not altered Resp Effort & Inspection: normal respiratory effort and able to speak in complete sentences Cardio Pulses: normal peripheral pulses GI Inspection: normal to inspection Palpation: soft Other: fundus firm << umb, non-tender compression dressing removed, steris in place c/d/i without erythema/induration/fluctuance Other: deferred Skin General: no rashes or lesions noted Neuro General: patient alert, patient awake and patient oriented x3 Extrem General: normal to inspection Psych Mental Status: mental status grossly normal Judgment: judgment good Discharge Plan Discharge Plan Patient Disposition: Home Provider Discharge Comment: No heavy lifting more than 15lbs (baby + carrier) for 6 weeks. Nothing in the vagina for 4 weeks - no tampons, intercourse, douching, swimming in fresh water/pools/hot tubs. Tub baths are ok if tub is cleaned well first. You may shower as normal, keep dressing clean and dry. Do not submerge incision in water. Discharge orders & Medications Prescriptions: New acetaminophen 325 mg Tablet 650 mg PO Q6H Qty: 30 0RF ibuprofen 600 mg Tablet 600 mg PO Q6H Qty: 30 0RF oxycodone 5 mg Tablet 5 mg PO Q4H PRN (Reason: Pain, Moderate (4-6)) Qty: 5 0RF Continued ferrous sulfate 325 mg (65 mg iron) tablet,delayed release (DR/EC) 325 mg PO BID Qty: 60 2RF vit 14-iron fum-folic 29 mg iron- 1 mg tablet,chewable 1 tab PO DAILY ferrous sulfate 134 mg (27 mg iron) tablet 134 mg PO DAILY omega-3 fatty acids 1,000 mg capsule 1,000 mg PO DAILY Follow up/Referrals: Jose Antonio Sanders MD [Primary Care Provider] - 1 Week (Follow-up appt made with Dr. Tesfaye on 01/08/25 at 1:45 PM for incision check.) Visit Report/Discharge Packet Stand Alone Forms: Discharge: Care, Patient Portal/API, Stroke Signs & Symptoms Discharge Data Primary Care Provider: Jose Antonio Sanders
[2025-01-02 14:14] VITALS: BP 137/72; PULSE 93; RESP 18; TEMP 36.7
== END 2025-01-02 14:14 | disposition home or self-care (01) | DRG 540 ==
PROVIDERS: Admitting Provider Obstetrics & Gynecology; PCP Family Medicine; Referring Provider Obstetrics & Gynecology; Visit Provider Obstetrics & Gynecology
PROC: 10D00Z1 Extraction of Products of Conception, Low, Open Approach (ICD-10-PCS; CPT 59514; principal; 2024-12-30 10:00)
DX: O24.429 Gestational diabetes mellitus in childbirth, unspecified control (principal); O14.04 Mild to moderate pre-eclampsia, complicating childbirth; O32.2XX0 Maternal care for transverse and oblique lie, not applicable or unspecified; O09.523 Supervision of elderly multigravida, third trimester; Z3A.38 38 weeks gestation of pregnancy; Z37.0 Single live birth
CPT/HCPCS: 36415; 59025; 59050; 59200; 59514; 76815; 80053; 82570; 84156; 84550; 85025; 86850; 86900; 86901; G0379; J0131; J0690; J1885; J2274; J2590; J2704; J3010

== ENCOUNTER → 2025-07-14 13:05 | Outpatient (CLI) | payer OTHER, SELFPAY ==
[2025-07-14 20:20] LABS: HCG Quantitative /Beta subunit 52895 mIU/mL
== END ==
PROVIDERS: PCP Physician Assistant; Visit Provider Obstetrics & Gynecology
DX: N91.2 Amenorrhea, unspecified (principal)
CPT/HCPCS: 84702

== ENCOUNTER → 2025-07-29 10:58 | Outpatient (CLI) | payer OTHER, SELFPAY ==
[2025-07-29 11:59] LABS: Add Manual Diff / Slide Review NO; Hematocrit 35.6 % (36-46); Hemoglobin 12.2 g/dL (12.0-16.0); Lymphocytes Absolute Auto 2300 /uL (1100-4500); Mean Corpuscular HGB Conc 34.4 % (30-36); Mean Corpuscular Hemoglobin 32.1 PG (26-34); Mean Corpuscular Volume 93.4 fL (80-100); Platelet Count 430 X10^3/uL (150-400)
[2025-07-29 12:09] LABS: Hemoglobin A1C% w Est Avg Glu 5.1 % (4.0-6.0)
[2025-07-29 12:25] LABS: Alanine Aminotransferase 17 IU/L (<35); Blood Urea Nitrogen 8 mg/dL (7-17); Estimated Glomerular Filt Rate > 60 mL/min (>60); HEMOLYSIS < 15 (0-50); Iron 160 ug/dL (37-170); Uric Acid 3.4 mg/dL (2.5-6.2)
[2025-07-29 12:36] LABS: Percent Iron Saturation 59 % (15-50); Total Iron Binding Capacity 273 ug/dL (265-497); Transferrin 229 mg/dL (206-381)
[2025-07-29 13:00] LABS: Ferritin 72 ng/mL (6-137)
[2025-07-29 17:03] LABS: HIV 1 & 2 Ab/Ag 4th Gen Combo NEGATIVE (NEGATIVE); Hep C Virus Ab w/Reflex Quant NEGATIVE s/c (NEGATIVE); Hepatitis B Surface Antigen NEGATIVE s/c (NEGATIVE)
== END ==
PROVIDERS: PCP Physician Assistant; Referring Provider Obstetrics & Gynecology; Visit Provider Obstetrics & Gynecology
DX: O09.899 Supervision of other high risk pregnancies, unspecified trimester (principal)
CPT/HCPCS: 36415; 80055; 82565; 82728; 83036; 83540; 83550; 84450; 84460; 84520; 84550; 86787; 86803; 86850; 86900; 86901; 87389

== ENCOUNTER → 2025-08-02 11:55 | Outpatient (CLI) | payer OTHER, SELFPAY ==
[2025-08-02 15:02] LABS: Urine N gonorrhoeae NOT DETECTED
[2025-08-02 15:22] LABS: Urine Chlamydia NOT DETECTED
== END ==
PROVIDERS: PCP Physician Assistant; Visit Provider Student in an Organized Health Care Education/Training Program
DX: Z11.3 Encounter for screening for infections with a predominantly sexual mode of transmission (principal)
CPT/HCPCS: 87491; 87591